=== PATIENT | female | born 1980 | race Caucasian/White ===

== ENCOUNTER 2017-01-25 09:14 | Emergency (ER) | payer OTHER ==
[~2017-01-25] VITALS: Ht 160 cm; Wt 70.3 kg
[~2017-01-25 09:14] MED LIST: ALBUAER; MONT1TAB3 PO; MXLUNK PO
[2017-01-25 09:20] VITALS: TEMP 37; Ht 160 cm; Wt 70.3 kg
[2017-01-25] MEDS ORDERED: HYDROCODONE/ACETAMOPHEN 5/325MG TAB PO ONE (09:30)
--- NOTE | 2017-01-25 09:30 | EMERGENCY ROOM VISIT NOTE ---
History Report prepared by Kiko: Stevenson Schrader Under the Supervision of: Dr. Darion Romero M.D. First contact with patient: 09:18 Chief Complaint: NECK PAIN Stated Complaint: RIGHT SIDE NECK/SHOULDER PAIN History of Present Illness The patient is a 37 year old female who presents to the Emergency Room with complaints of worsening right-sided neck pain that started 5 days ago. She thinks that she slept wrong on the night that the pain came on. She describes the pain as a "tooth ache" and the neck feels weak as well. This achiness and weakness radiates into her right shoulder, and when lying flat, the achiness and weakness radiates into her upper arm. The patient says that she is having trouble tilting her neck. She was adjusted by a chiropractor yesterday, which did not help. The patient denies any recent trauma. She also denies any abdominal pain, fevers, chills, bowel problems, urinary symptoms, or eating problems. She had a left-sided neck issue a year ago, which caused her migraines. The patient was sent to [facility], but she says that the physical therapy made her sick so she stopped the therapy. She has never had x-rays of her neck. The patient has tried ibuprofen for the pain, but it has not helped. She was using 1000 mg when needed. Source of History: patient Onset: 5 days ago Position: neck (left sided) Quality: ache Timing: worsening Associated Symptoms: + weakness (left side of neck, radiating into right shoulder, and when lying flat, down her right arm), No abdominal pain, No chills , No fevers, No urinary symptoms Note: Associated symptoms: Denies bowel problems or eating problems. Review of Systems All systems have been listed, reviewed, and are negative other than those previously mentioned. Please see Additional Medical History Sheet. Past Medical & Surgical Medical Problems: (1) Ankle sprain (2) Migraine (3) Palpitations (4) RUQ abdominal pain Family History Diabetes mellitus Gallbladder disease Heart disease Hypertension Kidney disease Social History Smoking Status: Current Every Day Smoker Alcohol Use: occasionally Drug Use: none Marital Status: Occupation Status: employed Current/Historical Medications Scheduled Albuterol Hfa (Ventolin Hfa), 2-4 PUFFS INH Q6H Ibuprofen Tab (Motrin), 600 MG PO Q6H Levothyroxine Sodium (Synthroid), 75 MCG PO DAILY Scheduled PRN Cyclobenzaprine Hcl (Flexeril), 10 MG PO TID PRN for neck pain Rizatriptan Benzoate (Maxalt), 10 MG PO for Migraine Allergies Coded Allergies: Cinnamon (Verified Allergy, Intermediate, HIVES, 01/25/17) Sulfa Drugs (Verified Allergy, Unknown, 01/25/17) Physical Exam Vital Signs Date Time Temp Pulse Resp B/P Pulse Ox O2 Delivery O2 Flow Rate FiO2 01/25/17 10:40 76 18 127/88 97 01/25/17 10:36 76 18 127/88 97 Room Air 01/25/17 09:20 37.0 104 18 158/113 99 Room Air Physical Exam GENERAL: Patient awake, alert, oriented x 3. Patient follows commands. Patient does not appear toxic. Patient is adequately hydrated and well- nourished. SKIN: No erythema, pallor, cyanosis or rash HEENT: Normal head, pupils equal, reactive to light and accommodation. Oral cavity and posterior pharynx appear normal. Neck: Without adenopathy, no neck vein distention. LUNGS: Clear to auscultation. No wheezes, no rales, no rhonchi. HEART: No murmurs. No gallops. No rubs ABDOMEN: Soft, nontender. No masses, no rebound, no hepatomegaly or splenomegaly. EXTREMITIES: Spasm of superior aspect of right trapezius, some point tenderness around C5, 6, and 7, no step-offs noted. Patient has good motor, sensory, and circulatory function distally to both hands. NEUROLOGIC: Cranial nerves II-XII within normal limits. No gross motor sensory function deficits. Medical Decision & Procedures ER Provider Diagnostic Interpretation: CT results are interpretations by the radiologist and per my review. CT OF THE CERVICAL SPINE CLINICAL HISTORY: Right-sided neck pain COMPARISON STUDY: No previous studies for comparison. CT DOSE: 210.19 mGy.cm TECHNIQUE: CT scan of the cervical spine was performed from the skull base to the thoracic inlet. Images are reviewed in the axial, sagittal, and coronal planes. IV contrast was not administered for this examination. FINDINGS: The visualized portions of the lung apices reveal no evidence of pneumothorax. The prevertebral soft tissues are normal. No fractures or subluxations are visualized. No destructive lesions are visualized. No significant degenerative changes are visualized. There is an equivocal small disc protrusion at the C4-5 level. If there is clinical concern over the presence of disc pathology, an MRI would be considered the test of choice in follow-up. IMPRESSION: No fractures, subluxations, or destructive lesions are visualized. Electronically signed by: Manolo Malagon M.D. 01/25/2017 9:57 AM Dictated Date/Time: 01/25/2017 9:54 AM Medications Administered Medications (Trade) Dose Ordered Sig/Emiliano Route Start Time Stop Time Status Last Admin Dose Admin Acetaminophen/ Hydrocodone Bitart ([place] 5/325 Tab) 2 tab ONE ONCE PO 01/25/17 09:30 01/25/17 09:31 DC 01/25/17 09:41 2 TAB ED Course 09: Past medical records reviewed. The patient was evaluated in room A9B. A complete history and physical examination was performed. 929: Ordered [place] 5/325 Tab 2 tab PO. 1006: Upon reevaluation, the patient appeared to have improvement of her symptoms. I discussed today's findings with her. She verbalized agreement of the treatment plan. She was discharged home. Medical Decision Nurses notes reviewed. Medical history sheet reviewed. Differential diagnosis includes but is not limited to: torticollis, degenerative joint disease, cervical radiculopathy. CT of the neck was performed to rule out other pathology. The patient was found to have questionable disc protrusion at C4-5. I discussed options with the patient regarding an MRI. She would prefer to wait and have it at a later date if pain persists. In the meantime, the patient will be placed on ibuprofen , Flexeril and hydrocodone. The patient was warned about complications from these medications. The patient's to follow-up with her family physician. [place] Drug Monitoring Program Search Results: patient reviewed within database, no issues identified Impression Primary Impression: Torticollis, acute Scribe Attestation The scribe's documentation has been prepared under my direction and personally reviewed by me in its entirety. I confirm that the note above accurately reflects all work, treatment, procedures, and medical decision making performed by me. Departure Information Dispostion Home / Self-Care Prescriptions Cyclobenzaprine Hcl (FLEXERIL) 10 Mg Tab 10 MG PO TID Y for neck pain, #20 TAB Prov: Darion Romero M.D. 01/25/17 Ibuprofen Tab (MOTRIN) 600 Mg Tab 600 MG PO Q6H, #30 TAB Prov: Darion Romero M.D. 01/25/17 Referrals Jeff Patterson M.D. (PCP) Forms HOME CARE DOCUMENTATION FORM, IMPORTANT VISIT INFORMATION, WORK / SCHOOL INSTRUCTIONS Patient Instructions [facility], [facility] Additional Instructions 600 mg ibuprofen every 6 hours until pain has resolved. One Flexeril every 8 hours as needed for pain. 1-2 hydrocodone every 4 hours as needed for more severe pain. Do not drive or operate machinery while taking Flexeril or hydrocodone. Apply heat intermittently to your neck over the next 3 days. Follow-up with Dr. Patterson within the next 10 days.
[2017-01-25] MEDS ORDERED: LEVO75TA PO (09:37)
[2017-01-25] MEDS ORDERED: RIZA10TA18 PO (09:37)
[2017-01-25] MEDS ORDERED: VNTHFA/IN INH (09:37)
[2017-01-25] MEDS ORDERED: METH10TA4 PO (09:37)
--- NOTE | 2017-01-25 09:59 | DIAGNOSTIC IMAGING REPORT ---
CT OF THE CERVICAL SPINE CLINICAL HISTORY: Right-sided neck pain COMPARISON STUDY: No previous studies for comparison. CT DOSE: 210.19 mGy.cm TECHNIQUE: CT scan of the cervical spine was performed from the skull base to the thoracic inlet. Images are reviewed in the axial, sagittal, and coronal planes. IV contrast was not administered for this examination. FINDINGS: The visualized portions of the lung apices reveal no evidence of pneumothorax. The prevertebral soft tissues are normal. No fractures or subluxations are visualized. No destructive lesions are visualized. No significant degenerative changes are visualized. There is an equivocal small disc protrusion at the C4-5 level. If there is clinical concern over the presence of disc pathology, an MRI would be considered the test of choice in follow-up. IMPRESSION: No fractures, subluxations, or destructive lesions are visualized. Electronically signed by: Manolo Malagon M.D. 01/25/2017 9:57 AM Dictated Date/Time: 01/25/2017 9:54 AM
[2017-01-25] MEDS ORDERED: HYDR-5688 PO (10:17)
[2017-01-25] MEDS ORDERED: IBUP-1427 PO (10:17)
[2017-01-25] MEDS ORDERED: CYCL10TA6 PO (10:17)
[2017-01-25 10:40] VITALS: BP 127/88; PULSE 76; O2SAT 97
== END 2017-01-25 10:53 | disposition home or self-care (01) ==
LOC: C.EDB 09:15 → C.EDA 10:53
DX: M43.6 Torticollis (principal); Z83.3 Family history of diabetes mellitus; Z82.49 Family history of ischemic heart disease and other diseases of the circulatory system; F17.200 Nicotine dependence, unspecified, uncomplicated

== ENCOUNTER → 2017-05-05 | Outpatient (CLI) | payer OTHER ==
[~2017-05-05] MED LIST changes: -ALBUAER; +IBUP-1427 PO; +LEVO75TA PO; -MONT1TAB3 PO; -MXLUNK PO; +RIZA10TA18 PO; +VNTHFA/IN INH
[2017-05-05 10:52] LABS: ALT/SGPT 17 U/L (12-78); BLOOD UREA NITROGEN 7 mg/dl (7-18); BUN/CREATININE RATIO 10.1 (10-20); CALCIUM 9.4 mg/dl (8.5-10.1); CARBON DIOXIDE 28 mmol/L (21-32); CHLORIDE 106 mmol/L (98-107); CREATININE 0.73 mg/dl (0.60-1.20); GLUCOSE 96 mg/dl (70-99); POTASSIUM 3.8 mmol/L (3.5-5.1); SODIUM 140 mmol/L (136-145)
[2017-05-05 10:54] LABS: ALB/GLOB RATIO 1.1 (0.9-2); ALKALINE PHOSPHATASE 66 U/L (45-117); AST/SGOT 15 U/L (15-37); CHOLESTEROL 159 mg/dl (0-200); CHOLESTEROL/HDL RATIO 5.7; HDL CHOLESTEROL 28 mg/dl; LDL CHOLESTEROL CALCULATED 113 mg/dl; TRIGLYCERIDES 91 mg/dl (0-150); VERY LOW DENSITY LIPOPROT CALC 18 mg/dl
== END | disposition home or self-care (01) ==
LOC: C.LAB1850 09:44
PROVIDERS: ATTEND Physician Assistant
DX: Z00.00 Encounter for general adult medical examination without abnormal findings (principal)

== ENCOUNTER → 2018-02-13 | Outpatient (CLI) | payer OTHER ==
[~2018-02-13] MED LIST changes: -IBUP-1427 PO
--- NOTE | 2018-02-13 14:04 | DIAGNOSTIC IMAGING REPORT ---
CERVICAL WITHOUT CONTRAST HISTORY: 38 years-old Female S16.1XXA,M50.90 acute neck pain with limited range of motion. COMPARISON: CT cervical spine 01/25/2017 TECHNIQUE: Multiplanar multisequence MRI of the cervical spine was obtained without contrast. FINDINGS: The large field of view fresh foods technician localizer images demonstrate no gross abnormality. The imaged chest appears unremarkable. Posterior fossa structures are within normal limits. No acute fracture, subluxation, or focal bone marrow edema. Signal within the cervical spinal cord is unremarkable. There is mild disc desiccation seen at the C3-C4 through C6-C7 levels. Straightening of the normal cervical lordosis. C2-C3: Mild uncovertebral spurring without significant central canal or foraminal narrowing C3-C4: Mild uncovertebral spurring with small posterior disc bulge. There is mild bilateral foraminal narrowing without central canal stenosis. C4-C5: Mild uncovertebral spurring without significant central canal or foraminal narrowing. C5-C6: Mild uncovertebral spurring without significant central canal or foraminal narrowing. C6-C7: Mild uncovertebral spurring without significant central canal or foraminal narrowing. C7-T1: No central canal or foraminal narrowing. Imaged upper thoracic levels appear unremarkable. IMPRESSION: 1. Mild uncovertebral spurring and disc desiccation is noted throughout the cervical spine with small posterior disc bulge at C3-C4 resulting in mild bilateral foraminal narrowing. 2. No significant central canal stenosis. 3. Straightening of the normal cervical lordosis may be secondary to paraspinal muscle spasm or patient positioning. The above report was generated using voice recognition software. It may contain grammatical, syntax or spelling errors. Electronically signed by: Christian Watts M.D. 02/13/2018 2:03 PM Dictated Date/Time: 02/13/2018 1:51 PM
== END | disposition home or self-care (01) ==
LOC: C.MRIBC 13:01
PROVIDERS: ATTEND Internal Medicine
DX: M50.90 Cervical disc disorder, unspecified, unspecified cervical region (principal); S16.1XXA Strain of muscle, fascia and tendon at neck level, initial encounter; X58.XXXA Exposure to other specified factors, initial encounter

== ENCOUNTER → 2018-06-05 | Outpatient (CLI) | payer OTHER ==
[2018-06-05 13:04] LABS: BLOOD UREA NITROGEN 10 mg/dl (7-18); CALCIUM 8.6 mg/dl (8.5-10.1); CARBON DIOXIDE 25 mmol/L (21-32); CHOLESTEROL 158 mg/dl (0-200); CREATININE 0.68 mg/dl (0.60-1.20); GLUCOSE 96 mg/dl (70-99); LDL CHOLESTEROL CALCULATED 112 mg/dl; POTASSIUM 3.9 mmol/L (3.5-5.1); SODIUM 140 mmol/L (136-145)
== END | disposition home or self-care (01) ==
LOC: C.LABBFT 07:49
PROVIDERS: ATTEND Nurse Practitioner Adult Health
DX: Z13.1 Encounter for screening for diabetes mellitus (principal); Z83.3 Family history of diabetes mellitus; E03.9 Hypothyroidism, unspecified; Z13.220 Encounter for screening for lipoid disorders